=== PATIENT | female | born 1990 | race Caucasian/White ===

== ENCOUNTER 2016-09-28 09:33 | Emergency (ER) | payer OTHER ==
[~2016-09-28] VITALS: Ht 147.3 cm; Wt 63.5 kg
[2016-09-28] MEDS ORDERED: KETOROLAC 60 MG/2 ML VIAL (J1885) IM ONE (10:00)
[2016-09-28 10:46] LABS: CALCIUM OXALATE CRYSTALS MODERATE
[2016-09-28] MEDS ORDERED: ULTR50TA PO (11:38)
[2016-09-28] MEDS ORDERED: NAPR500T PO (11:38)
[2016-09-28 11:48] VITALS: BP 122/89
--- NOTE | 2016-09-28 11:49 | REP ---
Pelvic sonography: History: Pelvic pain. Findings: Transabdominal and transvaginal scanning are performed. Transabdominal scanning is limited by lack of bladder filling. No bladder abnormality is seen. Uterine dimensions are normal at 8.1 x 3.2 x 5.6 cm. Endometrial echo is 1.0 cm thick and centrally placed. No focal uterine mass is seen. Normal ovary is seen on the right side measuring 2.4 x 1.7 x 2.1 cm. The left ovary is normal as well with dimensions of 2.3 x 1.8 x 2.0 cm. Doppler flow is normal in both ovaries. Resistive indices are measured at 0.66 on the right and 0.57 on the left. Impression: Normal pelvic sonography. Signed by Dilan Lora MD 09/28/2016 01:16 P
== END 2016-09-28 11:48 | disposition home or self-care (01) ==
LOC: M ED 09:41
DX: N94.6 Dysmenorrhea, unspecified (principal); R10.2 Pelvic and perineal pain; G89.29 Other chronic pain; F99 Mental disorder, not otherwise specified; F17.210 Nicotine dependence, cigarettes, uncomplicated
CPT/HCPCS: 76830; 76856; 81001; 81025; 87210; 87491; 87591; 93976; 96372; 99283; J1885

== ENCOUNTER → 2018-03-28 | Outpatient (REF) | payer OTHER | LOC: M SFHCLERA 15:01 | DX: J02.9 Acute pharyngitis, unspecified (principal); B97.89 Other viral agents as the cause of diseases classified elsewhere ==

== ENCOUNTER 2018-04-12 18:22 | Outpatient (CLI) | payer OTHER | END 2018-04-12 20:15 | disposition home or self-care (01) | LOC: M LDO 18:22 | DX: O34.63 Maternal care for abnormality of vagina, third trimester (principal); Z3A.39 39 weeks gestation of pregnancy | CPT/HCPCS: 76815 ==

== ENCOUNTER 2018-04-14 01:50 | Inpatient (IN) | payer OTHER ==
[2018-04-14] MEDS: LR 1,000 ML IV ×4 (02:55→20:35)
[2018-04-14 03:28] LABS: HEMATOCRIT 35.1 % (36.0-47.0); HEMOGLOBIN 11.7 g/dl (12.0-15.5); MEAN CORPUSCULAR HEMOGLOBIN 31.3 pg (27.0-33.0); MEAN CORPUSCULAR HGB CONC 33.3 g/dl (32.0-36.5); MEAN CORPUSCULAR VOLUME 93.9 fl (80.0-96.0); PLATELET COUNT, AUTOMATED 219 10^3/uL (150-450); RED BLOOD COUNT 3.74 10^6/uL (4.00-5.40); RED CELL DISTRIBUTION WIDTH 13.2 % (11.5-14.5); WHITE BLOOD COUNT 13.7 10^3/uL (4.0-10.0)
[2018-04-14] MEDS ORDERED: FENTANYL 2MCG/ML ROPIVACAINE 0.2% IN 0.9% NACL 200ML IVBAG As Ordered (06:19)
[2018-04-14] MEDS: LACTATED RINGER'S 1000 ML IV (07:24)
[2018-04-14] MEDS ORDERED: ONDANSETRON 4MG/2ML VIAL (J2405) IV ×2 (07:30→13:00)
[2018-04-14] MEDS ORDERED: diphenhydrAMINE INJ 50MG/ML VIAL (J1200) IV (07:30)
[2018-04-14] MEDS ORDERED: NALOXONE INJ 0.4 MG/1 ML VIAL (J2310) IV (07:30)
[2018-04-14] MEDS ORDERED: EPIDURAL/PCA KEYS XX (07:30)
[2018-04-14] MEDS ORDERED: REFRIGERATOR IV KEYS XX (07:30)
[2018-04-14] MEDS: FENTANYL/ROPIVACAINE/NACL BAG 200 ML EPIDURAL (07:30)
[2018-04-14] MEDS ORDERED: ePHEDrine SULFATE 25 MG/5 ML(5MG/ML) SYRINGE IV (07:30)
[2018-04-14] MEDS ORDERED: EPIDURAL COMMENT XX (07:30)
[2018-04-14] MEDS ORDERED: OXYTOCIN 30 UNITS IN 0.9% NaCl 500ML IV BAG (J2590) As Ordered (08:11)
[2018-04-14] MEDS: OXYTOCIN DRIP 30 UNITS in APPROPRIATE DILUENT 1 EA IV (08:30)
[2018-04-14] MEDS ORDERED: MORPHINE PRES-FREE INJ 10 MG/10 ML VIAL (J2274) As Ordered (11:33)
[2018-04-14] MEDS ORDERED: LIDOCAINE 2% W/EPIN INJ 20ML **PRES FREE As Ordered ×2 (11:33→11:34)
[2018-04-14] MEDS: BICITRA 30ML SOLN UDC PO (11:36)
[2018-04-14] MEDS ORDERED: ONDANSETRON 4MG/2ML VIAL (J2405) As Ordered (11:52)
[2018-04-14] MEDS ORDERED: OXYTOCIN INJ 10 UNITS/ML VIAL (J2590) As Ordered ×4 (12:00→12:14)
[2018-04-14] MEDS ORDERED: MEPERIDINE 50 MG/ML 1ML VIAL (J2175) As Ordered (12:13)
[2018-04-14 12:21] LABS: CORD GAS ABE V -5.9; CORD GAS HCO3 V 18.2 MEQ/L; CORD GAS O2 SAT V 74.8 %; CORD GAS PCO2 V 32.4 mmHg; CORD GAS PH V 7.367 UNITS; CORD GAS PO2 V 31.7 mmHg; CORD GAS SBC V 19.2 MEQ/L; CORD GAS TCO2 V 19.2 MEQ/L
[2018-04-14] MEDS ORDERED: PHENYLephrine HCL 500 MCG/5 ML (100MCG/ML) SYRINGE (J2370) As Ordered (12:23)
[2018-04-14 12:24] LABS: CORD GAS ABE A -3.6; CORD GAS O2 SAT A 50.1 %; CORD GAS PCO2 A 46.9 mmHg; CORD GAS PH A 7.308 UNITS; CORD GAS PO2 A 21.9 mmHg; CORD GAS SBC A 20.3 MEQ/L; CORD GAS TCO2 A 24.4 MEQ/L
[2018-04-14] MEDS: OXYTOCIN DRIP IV (12:35)
[2018-04-14] MEDS: DILUENT IV (12:35)
[2018-04-14] MEDS ORDERED: METHYLERGONOVINE MALEATE 0.2 MG TAB PO (12:45)
[2018-04-14] MEDS ORDERED: PERCOCET 5MG/325MG TAB PO ×2 (12:45)
[2018-04-14] MEDS ORDERED: MEASLES,MUMPS,RUBELLA VACCINE INJ (MMR-II) (90707) SC (12:45)
[2018-04-14] MEDS ORDERED: RHOGAM 300 MCG (1500 IU) INJ (J2790) IM (12:45)
[2018-04-14] MEDS ORDERED: NALBUPHINE HCL 10 MG/ML AMP (J2300) IV (13:00)
[2018-04-14] MEDS ORDERED: KETOROLAC 30 MG/ML VIAL (J1885) IV (13:00)
[2018-04-14] MEDS ORDERED: fentaNYL 100 MCG/2 ML INJECTION (J3010) IV (13:00)
[2018-04-14] MEDS: AMPICILLIN SOD 2 GM in D5W MINI-BAG PLUS 100 ML IV ×2 (13:06→19:37)
[2018-04-14] MEDS ORDERED: CLINDAMYCIN 900 MG/50 ML PREMIX BAG As Ordered (13:23)
[2018-04-14] MEDS: ACETAMINOPHEN 500 MG TAB PO (13:24)
[2018-04-14] MEDS: CLINDAMYCIN 900 MG in APPROPRIATE DILUENT 1 EA IV ×2 (13:32→22:10)
[2018-04-14] MEDS: KETOROLAC 30 MG/ML VIAL (J1885) IV ×2 (15:07→22:09)
[2018-04-14] MEDS: GENTAMICIN 425 MG in D5W 100 ML IV (15:12)
[2018-04-14] MEDS: ONDANSETRON 4MG/2ML VIAL (J2405) IV (18:22)
[2018-04-14] MEDS ORDERED: METOCLOPRAMIDE INJ 10MG/2ML VIAL (J2765) IV (19:15)
[2018-04-14] MEDS: DOCUSATE SODIUM 100 MG CAP PO (21:00)
[2018-04-15] MEDS: AMPICILLIN SOD 2 GM in D5W MINI-BAG PLUS 100 ML IV ×4 (01:37→18:53)
[2018-04-15] MEDS: KETOROLAC 30 MG/ML VIAL (J1885) IV ×2 (03:52→09:31)
[2018-04-15] MEDS: ONDANSETRON 4MG/2ML VIAL (J2405) IV (04:08)
[2018-04-15] MEDS: LR 1,000 ML IV ×3 (04:35→20:35)
[2018-04-15] MEDS: CLINDAMYCIN 900 MG in APPROPRIATE DILUENT 1 EA IV ×3 (06:26→22:07)
[2018-04-15 07:11] LABS: HEMATOCRIT 29.7 % (36.0-47.0); HEMOGLOBIN 9.9 g/dl (12.0-15.5); MEAN CORPUSCULAR HEMOGLOBIN 31.7 pg (27.0-33.0); MEAN CORPUSCULAR HGB CONC 33.3 g/dl (32.0-36.5); MEAN CORPUSCULAR VOLUME 95.2 fl (80.0-96.0); PLATELET COUNT, AUTOMATED 169 10^3/uL (150-450); RED BLOOD COUNT 3.12 10^6/uL (4.00-5.40); RED CELL DISTRIBUTION WIDTH 13.4 % (11.5-14.5)
[2018-04-15] MEDS ORDERED: CLINDAMYCIN 900 MG/50 ML PREMIX BAG As Ordered (07:26)
[2018-04-15] MEDS: PRENATAL VITAMINS CHEWABLE TABLET PO (08:11)
[2018-04-15] MEDS: DOCUSATE SODIUM 100 MG CAP PO ×2 (08:11→22:07)
[2018-04-15] MEDS: GENTAMICIN 425 MG in D5W 100 ML IV (15:20)
[2018-04-15] MEDS: IBUPROFEN 800 MG TAB PO (16:32)
[2018-04-16] MEDS: AMPICILLIN SOD 2 GM in D5W MINI-BAG PLUS 100 ML IV ×4 (01:56→18:21)
[2018-04-16] MEDS: IBUPROFEN 800 MG TAB PO ×3 (01:56→17:24)
[2018-04-16] MEDS: CLINDAMYCIN 900 MG in APPROPRIATE DILUENT 1 EA IV ×3 (06:41→21:14)
[2018-04-16] MEDS: DOCUSATE SODIUM 100 MG CAP PO ×2 (09:00→21:00)
[2018-04-16 09:09] LABS: BASO % 0.1 % (0.0-1.0); EOS # 0.1 10^3/uL (0.0-0.50); EOS % 0.4 % (0.0-3.0); HEMATOCRIT 27.2 % (36.0-47.0); HEMOGLOBIN 9.1 g/dl (12.0-15.5); LYMPH # 1.6 10^3/uL (1.5-6.5); LYMPH % 8.2 % (24.0-44.0); MEAN CORPUSCULAR HEMOGLOBIN 31.5 pg (27.0-33.0); MEAN CORPUSCULAR HGB CONC 33.5 g/dl (32.0-36.5); MEAN CORPUSCULAR VOLUME 94.1 fl (80.0-96.0); MONO % 4.7 % (0.0-5.0); NEUTROPHILS # 17.1 10^3/uL (1.8-7.7); NEUTROPHILS % 85.6 % (36.0-66.0); PLATELET COUNT, AUTOMATED 171 10^3/uL (150-450); RED BLOOD COUNT 2.89 10^6/uL (4.00-5.40); RED CELL DISTRIBUTION WIDTH 13.3 % (11.5-14.5)
[2018-04-16] MEDS: PRENATAL VITAMINS CHEWABLE TABLET PO (10:19)
[2018-04-16] MEDS: GENTAMICIN 425 MG in D5W 100 ML IV (15:08)
[2018-04-17] MEDS: IBUPROFEN 800 MG TAB PO ×3 (00:37→17:13)
[2018-04-17] MEDS: AMPICILLIN SOD 2 GM in D5W MINI-BAG PLUS 100 ML IV (00:37)
[2018-04-17] MEDS: CLINDAMYCIN 900 MG in APPROPRIATE DILUENT 1 EA IV (06:23)
[2018-04-17 07:16] LABS: BASO # 0.1 10^3/uL (0.0-0.2); BASO % 0.4 % (0.0-1.0); EOS # 0.2 10^3/uL (0.0-0.50); EOS % 1.5 % (0.0-3.0); HEMATOCRIT 30.7 % (36.0-47.0); HEMOGLOBIN 10.5 g/dl (12.0-15.5); IMMATURE GRANULOCYTE % 1.6 % (0-3.0); LYMPH # 1.9 10^3/uL (1.5-6.5); MEAN CORPUSCULAR HEMOGLOBIN 31.5 pg (27.0-33.0); MEAN CORPUSCULAR HGB CONC 34.2 g/dl (32.0-36.5); MEAN CORPUSCULAR VOLUME 92.2 fl (80.0-96.0); MONO # 0.8 10^3/uL (0.0-0.8); NEUTROPHILS # 11.8 10^3/uL (1.8-7.7); NEUTROPHILS % 78.5 % (36.0-66.0); PLATELET COUNT, AUTOMATED 194 10^3/uL (150-450); RED BLOOD COUNT 3.33 10^6/uL (4.00-5.40); RED CELL DISTRIBUTION WIDTH 13.2 % (11.5-14.5)
[2018-04-17] MEDS: PRENATAL VITAMINS CHEWABLE TABLET PO (07:49)
[2018-04-17] MEDS: DOCUSATE SODIUM 100 MG CAP PO ×2 (07:49→21:00)
[2018-04-18] MEDS: IBUPROFEN 800 MG TAB PO ×2 (00:40→09:54)
[2018-04-18] MEDS: DOCUSATE SODIUM 100 MG CAP PO (09:00)
[2018-04-18] MEDS: PRENATAL VITAMINS CHEWABLE TABLET PO (09:54)
== END 2018-04-18 13:00 | disposition home or self-care (01) | DRG 771 ==
LOC: M LDO 01:50 → M LDI 06:00 → M OBS 14:05
PROVIDERS: Obstetrics & Gynecology
PROC: 10D00Z1 Extraction of Products of Conception, Low, Open Approach (ICD-10-PCS; principal; 2018-04-14 11:41)
PROC: 10907ZC Drainage of Amniotic Fluid, Therapeutic from Products of Conception, Via Natural or Artificial Opening (ICD-10-PCS; 2018-04-14 11:41)
DX: O48.0 Post-term pregnancy (principal); O41.1230 Chorioamnionitis, third trimester, not applicable or unspecified; O76 Abnormality in fetal heart rate and rhythm complicating labor and delivery; O77.0 Labor and delivery complicated by meconium in amniotic fluid; Z3A.40 40 weeks gestation of pregnancy; Z37.0 Single live birth; O99.214 Obesity complicating childbirth; E66.9 Obesity, unspecified; Z68.37 Body mass index [BMI] 37.0-37.9, adult